=== PATIENT | female | born 1940 | race Caucasian/White ===

== ENCOUNTER → 2016-06-09 | Outpatient (CLI) | payer MEDICARE, OTHER ==
[~2016-06-09] MED LIST: ALDACTONE25 MG PO; B-12500 MCG PO; CALCIUM + VIT1 EACH PO; CELEXA20 MG PO; COREG12.5 M1 PO; COUMADIN3 MG PO; COUMADIN4 MG PO; FEOSOL325 MG PO; FLONASE16 GM NASBOTH; HALFPRIN81 MG PO; HYDROCHLOROTHIA25 MG PO; IMDUR30 MG PO; KLOR-CON M2020 MEQ PO; LANTUS100 UNIT/1 SUBCUT; LASIX20 MG PO; LASIX40 MG PO; LASIX80 MG PO; LIORESAL10 MG PO; LIPITOR20 MG PO; LIPITOR40 MG PO; LORCET HD 10-31 EACH PO; MIRALAX17 GM PO; NADOLOL20 MG PO; NEURONTIN300 MG PO; NITROSTAT0.4 MG SL; NORVASC2.5 MG PO; NOVOLOG100 UNIT/2 SUBCUT; PEPCID20 M1 PO; PRILOSEC20 MG PO; PRINIVIL20 MG PO; PROCRIT40000 UNIT SUBCUT; SYNTHROID50 MCG PO; SYNTHROID88 MCG PO; TIMOPTIC 0.5%1 EACH EYEBOTH; TOPICORT60 GM TOP; TOPROL XL50 MG PO; TRIAMCINOLONE A15 GM TOP; ULTRAM50 MG PO; VITAMIN B-1000 MCG/1 IM; VITAMIN D31000 UNI1 PO; XANAX0.25 MG PO
== END | disposition short-term general hospital (02) ==
LOC: CLVASC 16:01
DX: Z47.81 Encounter for orthopedic aftercare following surgical amputation (principal); Z89.421 Acquired absence of other right toe(s)

== ENCOUNTER → 2016-07-07 | Outpatient (CLI) | payer MEDICARE, OTHER | END | disposition short-term general hospital (02) | LOC: CLVASC 02:09 | DX: Z47.81 Encounter for orthopedic aftercare following surgical amputation (principal); Z89.422 Acquired absence of other left toe(s) ==

== ENCOUNTER 2016-07-29 15:35 | Emergency (ER) | payer MEDICARE, OTHER ==
[~2016-07-29] VITALS: Ht 170.2 cm; Wt 102.1 kg
== END 2016-07-29 17:25 | disposition short-term general hospital (02) ==
LOC: ER 15:35
DX: R53.1 Weakness (principal); H53.9 Unspecified visual disturbance; I25.10 Atherosclerotic heart disease of native coronary artery without angina pectoris; K21.9 Gastro-esophageal reflux disease without esophagitis; F41.9 Anxiety disorder, unspecified; E78.5 Hyperlipidemia, unspecified; E66.9 Obesity, unspecified; Z86.718 Personal history of other venous thrombosis and embolism; Z86.711 Personal history of pulmonary embolism; D64.9 Anemia, unspecified; M19.90 Unspecified osteoarthritis, unspecified site; G25.81 Restless legs syndrome; I25.5 Ischemic cardiomyopathy; Z95.1 Presence of aortocoronary bypass graft; Z96.652 Presence of left artificial knee joint; Z79.01 Long term (current) use of anticoagulants; Z79.899 Other long term (current) drug therapy